=== PATIENT | female | born 1985 | race Caucasian/White ===

== ENCOUNTER 2024-12-20 12:00 | Emergency (ER) | payer BC, SELFPAY ==
[2024-12-20 12:01] VITALS: BP 156/95; PULSE 84; RESP 18; TEMP 37.2; O2SAT 98; BMI 31.4
--- OUTSIDE RECORDS SUMMARY | 2024-12-20 12:02 | XMS_ITS | Clinical Summary ---
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 08/13/2013 08/12/2018 Overview (08/13/2013): LEEP 08/2011 CIN2 Pap 10/2012 WNL HPV test positive 08/07/2013 08/12/2018 Overview (08/24/2013): NIL Pap; colp recommended per provider Implanon in place - inserted 04/201110/06/2012 03/06/2015 Immunizations Immunization Administration Dates Next Due COVID-19 vaccine (Moderna 100mcg/0.5mL) PF, MDV 07/14/2020 Influenza, IIV3 (Age >=3 years) 06/04/2010 Tdap 07/17/2022,04/01/2011 Tuberculin (PPD) 05/21/2010 Family History Medical History Relation Name Comments Good Health Brother Other Father hep C Diabetes Maternal Grandfather Cancer-breast Maternal Grandmother Diabetes Maternal Grandmother Diabetes Mother Psychiatric illness Mother bipolar Diabetes Paternal Grandfather Cancer Paternal Grandmother brain t umor Psychiatric illness Sister 2 bipolar Relation Name Status Comments Brother Father Alive Maternal Grandfather Alive Maternal Grandmother Mother Alive Paternal Grandfather Paternal Grandmother Sister 1 Alive Sister 2 Social History Tobacco Use Types Packs/Day Years Used Date Smoking Tobacco: Never Smokeless Tobacco: Never Tobacco Cessation:Counseling Given: Yes Alcohol Use Standard Drinks/Week Comments Yes 0 (1 standard drink = 0.6 oz pure alcohol) occasional; couple drinks per week. PHQ-2 Answer Date Recorded PHQ-2 TOTAL SCORE 0 07/17/2022 Social Connections Answer Date Recorded Do you often feel lonely or isolated from those around you? 0 10/20/2023 Financial Resource Strain Answer Date R ecorded Difficulty of Paying Living Expenses 3 10/20/2023 Difficulty of Paying Living Expenses Not on file 10/20/2023 Food Insecurity Answer Date Recorded Do you worry your food will run out before you are able to buy more? 1 10/20/2023 Transportation Needs Answer Date Record ed Does lack of transportation keep you from medica l appointments? 1 10/20/2023 Does lack of transportation keep you from work, meetings or getting things that you need? 1 10/20/2023 Housing Stability Answer Date Recorded What is your housing situation today? 1 10/20/2023 Utilities Answer Date Recorded Do you have trouble paying f or utilities (for example, heat, electricity, water, phone)? 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 Gender Identity Not on file Sexual Orientation Not on file Obstetrics History Para Term AB IAB SAB Ectopic Multiple Livin g Live Births 2 2 2 0 0 0 0 0 2 1 Date Outcome GA Total Labor Labor/2nd/3rd Weight Sex Type Anes PTL Carol A1 A5 Name Clin 2004 Term 40w 0d 6h 00m/ 3.09 kg (6 lb 13 oz) M Vag None Livin g Emmanu el Delivery Location:[facility] Comments:20 minute sec ond stage 2010 Term 40w 0d 4h 00m/ 3.29 kg (7 lb 4 oz) M Vag Juanita Delivery Location:[place] Last Filed Vital Signs Vital Sign Reading Time Taken Comments Blood Pressure 110/72 10/28/2023 9:50 AM CDT Pulse 76 10/28/2023 9:50 AM CDT Temperature 36.8 C (98.2 F) 10/28/2023 9:50 AM CDT Respiratory Rate 18 08/13/2013 11:38 AM JET WORKER Oxygen Saturation 96% 10/28/2023 9:50 AM CDT Inhaled Oxygen Concentration - - Weight 82.6 kg (182 lb) 10/20/2023 10:18 AM CDT Height 158 cm (5' 2.21) 07/17/2022 4:14 PM JET WORKER Body Mass Index 33.07 07/17/2022 4:14 PM JET WORKER Plan of Treatment Upcoming Encounters Date Type Department Care Team (Late st Contact Info) Description 12/22/2024 9:45 AM CDT Office Visit [facility] [address] [place] [address] Bill Lebron, DO [address] [facility] [address] [place] [address] Health Maintenance Due Date Last Done Comments Hepatitis B series for 19+ (1 of 3 - 19+ 3-dose series) 2006 BMI (ht and wt on same day) for age 18+ 07/17/2023 07/17/2022, 05/24/2020, 07/30/2018, Additional history exists Depression screening for age 12+ 07/17/2023 07/17/2022, 05/24/2020, 07/30/2018, Additional history exists Pap test for age 21-65 07/17/2023 , 07/17/2022, 05/24/2020, Additional history exists COVID-19 vaccine series ( season) 2024 07/14/2020 Influenza Vaccine (Season Ended) 2025 06/04/2010 Tetanus booster 07/17/2032 07/17/2022, 03/08, 11/08/2010 (Declined) Hepatitis C screening for age 18-79 Completed 01/04/2010 HIV for age 15-65 Completed 05/21/2010, 01/04/2010 Tdap Completed 07/17/2022, 04/01/2011 Pneumococcal series for age 6-49 Aged Out No longer eligible based on patient's age to complete this topic Procedures Procedure Name Priority Date/Time Associated Diagnosis Comments 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 THIN PREP PAP DIAGNOSTIC IMAGED Routine 07/17/2022 5:02 PM JET WORKER SHAMA I (cervical intraepithelial neoplasia I) ANTI HIV 1/2 Routine 05/21/2010 10:56 AM JET WORKER Supervision of other normal (HC) ANTI HCV Routine 01/04/2010 9:52 AM CDT Screening examination for venereal disease from Last 3 Months or Most Recently Relevant to Health Maintenance Results * 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 THIN PREP PAP DIAGNOSTIC IMAGED (07/17/2022 5:02 PM JET WORKER) Case Report Gynecologic Cytology Report Case: [id number] Authorizing Provider: Anita Ovalle MD Collected: 07/17/2022 1702 Ordering Location: [facility] Received: 07/18/2022 0827 Clinic First Screen: Sukhwinder Santamaria Rescreen: Ze Stahl Specimen: 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 ThinPrep Vial Diagnostic, Cervical 07/31/2022 9:46 AM JET WORKER [facility] INTERPRETATION/ RESULT NEGATIVE FOR INTRAEPITHELIAL LESION OR MALIGNANCY (NIL) (none) 07/31/2022 9:46 AM JET WORKER [facility] at 0946 JET WORKER ORGANISM(S) Shift in randolph suggestive of bacterial vaginosis 07/31/2022 9:46 AM JET WORKER [facility] SPECIMEN ADEQUACY Satisfactory for evaluation Endocervical component present 07/31/2022 9:46 AM JET WORKER [facility] HPV REQUEST HPV and PAP 07/31/2022 9:46 AM JET WORKER [facility] Date of LMP 07/11/2022 07/31/2022 9:46 AM JET WORKER [facility] Last Pap Date 05/24/20 07/31/2022 9:46 AM JET WORKER [facility] Last Pap Result LSIL 9:46 AM JET WORKER [facility] EN[facility] Abnormal Pap or [place] Bx in last 5 years Yes 07/31/2022 9:46 AM JET WORKER [facility] Menstrual Status Regular Periods 07/31/2022 9:46 AM JET WORKER [facility] [place] Bx Done Today No 07/31/2022 9:46 AM JET WORKER [facility] Additional Information None Given 07/31/2022 9:46 AM JET WORKER [facility] Comment: Cytology is screened at [facility] - [address], [place] [address] [address] [facility] - [address], [place] [address] and [facility] - [address] [place] [address] Interpreted at [facility] - [address], [place] [address] Automated Review Successful 07/31/2022 9:46 AM JET WORKER [facility] Comment:Specimen processed s uccessfully by automated food service representative device, ThinPrep Imaging System, [employer] ANCILLARY TESTING 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 HPV Ordered, Please see separate report 07/31/2022 9:46 AM JET WORKER [facility] Note The pap test is a screening technique, not a diagnostic procedure. It is used primarily to screen for squamous cancers and precursor lesions. Published studies have shown that it is subject to both false negative and false positive results. The pap test should not be used as the sole means to diagnose or exclude pre-malignant and malignant lesions. 07/31/2022 9:46 AM JET WORKER [facility] Other (Cervical) Non-Blood / Unknown 07/17/2022 5:02 PM JET WORKER 07/18/2022 8:27 AM JET WORKER us Anita Ovalle MD PATHOLOGY/CYTOLOGY Final Resu lt [facility] [address] [place] [address], [place] * HIV (05/21/2010 10:56 AM JET WORKER) ANTI HIV 1/2 Non-reacti ve [facility] Blood specimen (specimen) BLOOD SPECIMEN / Unknown 05/21/2010 10:56 AM JET WORKER 05/21/2010 10:49 AM JET WORKER us Delphine Mehta TENTERING MACHINE OFF BEARER SEND OUTS Final Result Performing Organization Address City/[facility]/ZIP Co de Phone Number [facility] INTERNAL ZIP [phone] [place] [phone] * ANTI HCV (01/04/2010 9:52 AM CDT) ANTI HCV Non-reacti ve [facility] Blood specimen (specimen) BLOOD SPECIMEN / Unknown 01/04/2010 9:52 AM CDT 01/04/2010 9:46 AM CDT us Jovanna Sandoval TENTERING MACHINE OFF BEARER SEND OUTS Final R esult Performing Organization Address [facility]/ZIP Co de Phone Number [facility] INTERNAL ZIP [phone] [place] [phone] from Last 3 Months or Most Recently Relevant to Health Maintenance Insurance [facility] Care Teams Bellman Relationship Specialty Start Date End Date Pcp, No . PCP - General 01/16/23
--- NOTE | 2024-12-20 12:16 | ED.GENADULT ---
HPI - General Adult General Time Seen by Provider: 12:17 Date Seen: 12/20/24 Chief complaint: Unspecified Complaint, Adult Stated complaint: possible stroke Time Seen by Provider: 12/20/24 12:02 Source: patient and RN notes reviewed Mode of arrival: ambulatory Limitations: no limitations History of Present Illness HPI narrative: Ashley is a 39-year-old female previously healthy who comes to the emergency room for evaluation regarding facial drooping on the left for greater than 24 hours. Ashley's boyfriend noticed some drooping yesterday but she did not think that it was very bad. Today, she went to work and her coworkers were very alarmed and were worried that she was having a stroke. Patient notes that the drooping does seem to be worse on the left. Notes that it is hard to smile and that it is hard to close her eye. She denies visual changes, recent fever cough cold congestion. She has not had any headache or ear pain. Denies change in hearing. Does not note any change in taste. This is not happened to her in the past. Three weeks ago she had a headache for which she took ibuprofen and Tylenol and had an episode of vomiting. No headache since that time. Denies numbness or tingling of the extremities recent falls trauma. Occasionally uses marijuana otherwise no drug use. Denies alcohol use. Does not smoke. Has not had irregular heartbeat. No history of DVT, calf tenderness or swelling. Related Data Previous Rx's ?Medication ?Instructions ?Recorded prednisone 20 mg tablet 40 mg (2 x 20 mg) PO BID 7 days 12/20/24 #28 tabs valacyclovir 1 gram tablet 1,000 mg PO TID #21 tabs 12/20/24 (Valtrex) Allergies Allergy/AdvReac Type Severity Reaction Status Date / Time No Known Drug Allergies Allergy Verified 12/20/24 12:09 Review of Systems Status of ROS: Reports: 6 or more systems reviewed and unremarkable except as noted in History and below Exam Narrative: Exam Narrative: Alert and oriented. No acute distress. EOM is full with pupils equal round reactive. Noted weekend eyelid closure on the left. Left eyebrow raise deficiency. Left corner of the lip droop with smile. Tongue is midline. Sugar test on the anterior tongue shows lack of taste on the left or affected side. TMs bilaterally within normal limits. Ear canals without evidence of lesions. No lesions noted on face neck. Neck is supple without lymphadenopathy. Heart with a regular rate in rhythm although I did note a few additional systole so with compensatory pause. Moving all extremities without difficulty. Dexterity appears to be intact. Ambulating witnessed and that is without difficulty. Const: Vital Signs, click to edit/add: Vital Signs - 24 hr 12/20/24 12:01 Temperature 98.9 F Pulse Rate [Right Pulse Oximeter] 84 Respiratory Rate 18 Blood Pressure [Ri ght Upper Arm] 156/95 H Pulse Oximetry 98 Oxygen Delivery Me thod Room Air Documenting provider has reviewed patient's vital signs: yes Course Course ED Course: Differential diagnosis includes but is not limited to Perry's palsy, Lyme disease, stroke, tumor. Given the obvious facial droop on the left, eyebrow does not raise and thus indicates peripheral process. No history or symptoms to suggest central process such as tumor stroke. Did explain to patient the most likely herpes but given that we live in [place] I do have concerns about Lyme. 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 She cannot recall any tick bites. Will have Lyme titer drawn here as well as EKG as she did have additional beats on auscultatory exam. Reevaluation(s) Reevaluation #1: EKG reassuring with no evidence of prolonged MI interval/1st degree heart block or additional systole. Vital Signs Vital signs: Initial Vital Signs Temperature 98.9 F 12/20/24 12:01 Temperature Source Temporal Artery Scan 12/20/24 12:01 Pulse Rate 84 12/20/24 12:01 Pulse Rhythm Regular 12/20/24 12:01 Pulse Strength 3+ Normal 12/20/24 12:01 Respiratory Rate 18 12/20/24 12:01 Blood Pressure 156/95 H 12/20/24 12:01 Blood Pressure Mean 115 H 12/20/24 12:01 Blood Pressure Position Sitting 12/20/24 12:01 Pulse Oximetry 98 12/20/24 12:01 Oxygen Delivery Method Room Air 12/20/24 12:01 Vital Signs Temperature 98.9 F 12/20/24 12:01 Pulse Rate 84 12/20/24 12:01 Respiratory Rate 18 12/20/24 12:01 Blood Pressure 156/95 H 12/20/24 12:01 Pulse Oximetry 98 12/20/24 12:01 Oxygen Delivery Method Room Air 12/20/24 12:01 Temperature 98.9 F 12/20/24 12:01 Pulse Rate 84 12/20/24 12:01 Respiratory Rate 18 12/20/24 12:01 Blood Pressure 156/95 H 12/20/24 12:01 Pulse Oximetry 98 12/20/24 12:01 Oxygen Delivery Method Room Air 12/20/24 12:01 Medical Decision Making MDM Narrative Medical decision making narrative: 1. Perry's palsy-House Brackmann scale 3. Will initiate prednisone 40 mg b.i.d. x7 days as well as Valtrex 1 g t.i.d. x7 days. Suggest the use of artificial tears and medical tape overnight. Follow-up with primary MD in the next 10 days. Return to the emergency room for worsening symptoms especially fever, headache, vomiting and as needed. 2. Disposition-home at this time -return for worsening symptoms. Patient information from [employer] provided to patient. ECG Data Attestation: I personally reviewed and interpreted this ECG as follows: Interpretation: Normal sinus rhythm at a rate of 77. No acute ST or T-wave changes. No evidence of prolonged MI. Normal QT. no PVCs or additional systole is noted. Discharge Plan Discharge Clinical Impression: Perry's palsy Patient Disposition: Home, Self-Care Condition: Unchanged Additional Instructions: 1. We will start you on oral steroids. Prednisone 40 mg twice daily for 7 days. 2. We will put you on an antiviral Valtrex 1000 mg 3 times a day for 7 days. 3. You will need to purchase artificial tears to keep your eye nice and moist especially when you are sleeping at night. You may also want to purchase some medical pace to take your eye shut overnight. You may notice worsening of your symptoms over the next few weeks. If you suddenly have a high fever, weakness of your arms or legs, significant headache you should seek medical attention. With your primary MD over the next 3 weeks for recheck. Return to the emergency room as needed. You will be contacted if your Lyme results are positive. Prescriptions: New valacyclovir [Valtrex] 1 gram tablet 1,000 mg PO TID Qty: 21 0RF prednisone 20 mg tablet 40 mg PO BID 7 Days Qty: 28 0RF Stand Alone Forms: [employer] Info Instructions
[2024-12-20 12:57] VITALS: BP 120/78; PULSE 85; RESP 20
[2024-12-22 02:21] LABS: Lyme ELISA Reflex 0.82 IV (<=0.90)
== END 2024-12-20 13:05 | disposition home or self-care (01) ==
PROVIDERS: Emergency Provider Family Medicine
DX: G51.0 Bell's palsy (principal)
CPT/HCPCS: 36415; 86618; 99284